=== PATIENT | female | born 1960 | race Caucasian/White ===

== ENCOUNTER 2020-07-12 23:18 | Emergency (ER) | payer OTHER ==
[~2020-07-12 23:18] MED LIST: OMNICEF 300 MG300 MG PO; ZITHROMAX250 MG PO
[2020-07-13 01:16] LABS: HEMOGLOBIN 11.1 gm/dl (12.3-15.3); WHITE BLOOD COUNT 3.2 K/UL (4.5-11.0)
[2020-07-13 01:50] LABS: BUN/CREATININE RATIO 22 (0-10)
== END 2020-07-13 02:43 | disposition home or self-care (01) ==
LOC: ER1 23:18
PROVIDERS: Family Medicine
DX: J18.9 Pneumonia, unspecified organism (principal); I10 Essential (primary) hypertension; Z79.899 Other long term (current) drug therapy; Z85.528 Personal history of other malignant neoplasm of kidney; Z88.6 Allergy status to analgesic agent; Z90.5 Acquired absence of kidney
CPT/HCPCS: 36600; 71045; 80048; 82550; 82553; 82803; 83874; 84484; 85025; 93005; 99285

== ENCOUNTER → 2020-09-28 | Outpatient (CLI) | payer OTHER | LOC: EXRD 10:36 | DX: Z09 Encounter for follow-up examination after completed treatment for conditions other than malignant neoplasm (principal); Z86.16 Personal history of COVID-19 | CPT/HCPCS: 71046 ==

== ENCOUNTER → 2021-11-29 | Outpatient (CLI) | payer OTHER | LOC: MAMO 09:53 | DX: Z12.31 Encounter for screening mammogram for malignant neoplasm of breast (principal) | CPT/HCPCS: 77063; 77067 ==